=== PATIENT | male | born 1935 | race Caucasian/White ===

== ENCOUNTER 2020-05-10 09:34 | Outpatient (RCR) | payer MEDICARE, BC, SELFPAY | END 2020-05-10 23:59 | LOC: IMMUN 09:34 | PROVIDERS: PCP Student in an Organized Health Care Education/Training Program; Referring Provider Family Medicine; Visit Provider Family Medicine | DX: Z23 Encounter for immunization (principal) | CPT/HCPCS: 0011A; 0012A; 91301 ==

== ENCOUNTER 2020-08-14 14:21 | Observation (INO) | payer MEDICARE, BC, SELFPAY ==
[2020-08-14 13:51] VITALS: BP 119/71; PULSE 81; RESP 17; TEMP 36.4; O2SAT 95; BMI 20.2
--- NOTE | 2020-08-14 14:26 | PCM.HP.STD ---
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 He has been having abdominal pain that started about 2 months ago but at that time it resolved on its own and then he started having the abdominal pain a few weeks ago again it has not resolved so he went to his PCP who started him on a PPI however it has not improved and so he was scheduled to follow-up with his PCP this Wednesday for further testing and evaluation however the pain had gotten too great so he went to the ER. CT scan in the ER demonstrated peritoneal carcinomatosis with ascites. He does have a history of throat cancer back in 2001 and currently speaks through a [employer]. [facility] Medical History (Updated 08/14/20 @ 15:[address] 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 CHF (congestive heart failure) HLD (hyperlipidemia) HTN (hypertension) Hypothyroidism Stage 3a chronic kidney disease Home Medications aspirin 81 mg PO LUNCH 08/14/20 [History Last Taken 08/13/20] atorvastatin 40 mg PO QHS 08/14/20 [History Last Taken 08/13/20] cholecalciferol (vitamin D3) 125 mcg PO LUNCH 08/14/20 [History Last Taken 08/13/20] furosemide 40 mg PO LUNCH 08/14/20 [History Last Taken 08/13/20] levothyroxine 50 mcg PO DAILY 08/14/20 [History Last Taken 08/13/20] lisinopril 2.5 mg PO QHS 08/14/20 [History Last Taken 08/13/20] metoprolol succinate 25 mg PO QHS 08/14/20 [History Last Taken 08/13/20] multivitamin 1 tab PO LUNCH 08/14/20 [History Last Taken 08/13/20] nystatin 5 ml PO BID 08/14/20 [History Last Taken 08/13/20] omeprazole 20 mg PO DAILY 08/14/20 [History Last Taken 08/13/20] potassium chloride 10 meq PO LUNCH 08/14/20 [History Last Taken 08/13/20] Allergy/AdvReac Type Severity Reaction Status Date / Time tamsulosin AdvReac Severe Other Verified 08/14/20 15:25 Family History (Updated 08/14/20 @ 15:[address] José Garzon MD) Father Heart disease Mother Heart disease Brother Heart transplant recipient Surgical History (Updated 08/14/20 @ 15:[address] José Garzon MD) S/P angioplasty with stent Status post laryngectomy Status post tracheostomy Social History Smoking Status: Former smoker ROS Constitutional Constitutional: Reports change in weight; Denies chills, fatigue or fever(s) Eyes Eyes: Denies blurry vision ENT HEENT: Denies headache(s) Cardiovascular Cardiovascular: Denies chest pain or palpitations Respiratory/Chest Respiratory/Chest: Denies cough, shortness of breath at rest or shortness of breath with exertion Gastrointestinal Gastrointestinal: Reports abdominal pain; Denies diarrhea, nausea or vomiting Genitourinary Genitourinary: Denies dysuria or urinary frequency Musculoskeletal Musculoskeletal: Denies joint pain Neurologic Neurologic: Denies numbness, syncope or tingling Psychiatric Psychiatric: Denies anxiety or depression Vital Signs Vital Signs Vital Signs: 08/14/20 13:51 Temperature 97.6 F L Temperature Source Oral Pulse Rate 81 Respiratory Rate 17 Blood Pressure 119/71 Blood Pressure Mean 87 Blood Pressure Source Monitor Blood Pressure Position Semi-Fowlers Blood Pressure Location Right Arm Pulse Ox 95 Oxygen Delivery Method Room Air Physical Exam Const alert and oriented x3 General Appearance: cooperative HEENT HEENT Narrative: Hard of hearing, trach in place Eyes PERRL, EOMs intact bilaterally and conjunctivae normal Neck no lymphadenopathy, supple and no JVD Resp normal respiratory effort, no use of accessory muscles and clear to auscultation bilaterally Auscultation: Negative for crackles, rales, rhonchi or wheezes Cardio regular rate, regular rhythm, S1 normal heart sound, S2 normal heart sound and no murmurs GI soft to palpation, non-tender and non-distended Extremity no clubbing, cyanosis or edema Skin no rashes or lesions noted Neuro moves all extremities and no focal motor deficits Psych affect normal Assessment & Plan Assessment/Plan (1) Peritoneal carcinomatosis: (2) Ascites: QUALIFIERS: Ascites type: malignant Qualified Code(s): R18.0 - Malignant ascites PLAN: 1. Peritoneal carcinomatosis with radiologic ascites/history of throat cancer status post resection, radiation and permanent trach -We will attempt to upload CT scan from outside hospital if not we will have to repeat abdominal CT scan -We will consult oncology for evaluation -He has had about a 2 pound weight loss over the last 2 weeks, will encourage p.o. intake. We will place him on a regular diet 2. CAD status post stent/CHF unknown type/HLD/HTN -Blood pressure stable, resume home med -Continue with Lasix, and aspirin -Continue with Lipitor 3. Hypothyroidism -Stable -Continue with Synthroid 4. CKD 3a -Unsure if kidney function is at baseline with a creatinine of 1.48, will repeat in the morning DVT: Heparin Visit Charges Inpatient E&M: 65844 Init Hosp L2
--- NOTE | 2020-08-14 14:34 | PCM.HP.STD ---
HPI - General General Date of Admission: 08/14/20 HPI Narrative POP OWEN, is a 85 M who presents [facility] Allergy/AdvReac Type Severity Reaction Status Date / Time Tamsulosin AdvReac Severe Other Uncoded 08/14/20 14:04 Social History Smoking Status: Former smoker Vital Signs Vital Signs Vital Signs: 08/14/20 13:51 Temperature 97.6 F L Temperature Source Oral Pulse Rate 81 Respiratory Rate 17 Blood Pressure 119/71 Blood Pressure Mean 87 Blood Pressure Source Monitor Blood Pressure Position Semi-Fowlers Blood Pressure Location Right Arm Pulse Ox 95 Oxygen Delivery Method Room Air
--- NOTE | 2020-08-14 14:34 | PCM.DC ---
Discharge Instructions Dressing / Incision Call your doctor if you observe: Fever of 101 or Higher, Shortness of breath, Dizziness, Fainting spells, Swelling in the ankles, Chest pain and Increased palpitations (irregular heartbeat) Discharge Plan Admission Admit Date/Time: 08/14/20 14:21 Attending Provider: Leanne Saul Primary Care Provider: Ravi Patel Discharge Orders/Prescriptions Referrals: Ravi Patel DO [Primary Care Provider] - In 1 Week Roberto Gil MD [STAFF PHYSICIAN] - In 1 Week Disposition Disposition (needs filled in before D/C Order can be placed): Home, self care
[2020-08-14] MEDS: 0.9% Normal Saline 1,000 ML 75 ML IV (15:34)
[2020-08-14] MEDS: 0.9% Saline Lock 10 ML Syringe IV (15:35)
[2020-08-14 16:03] VITALS: PULSE 106
--- NOTE | 2020-08-14 18:36 | CON.PCM.ON_ITS ---
Assessment & Plan Assessment/Plan (1) Peritoneal carcinomatosis: Status: Acute Code(s): C78.6 - Secondary malignant neoplasm of retroperitoneum and peritoneum Plan: To obtain CT neck,chest, abdomen and pelvis to determine the extent of disease. Discussed case with Pt and his . (2) Ascites: Status: Acute Code(s): R18.8 - Other ascites Qualifiers: Ascites type: malignant Qualified Code(s): R18.0 - Malignant ascites Plan: To obtain diagnostic paracentesis for histologic diagnosis. (3) History of laryngeal cancer: Status: Acute Code(s): Z85.21 - Personal history of malignant neoplasm of larynx Plan: Will follow with further suggestion based on CT and Cytology results. HPI Consult Data Date of Service:: 08/14/20 PCP / Referring Provider: Dr. Ravi Patel DO Attending: Dr. Leanne Saul MD Chief Complaint Chief Complaint: Asked to Pt with Laryngeal cancer and ascites. 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 He was treated with radiation by Dr. Madison. In 2007 he had recurrence and total laryngectomy was done at [facility]. He presented to [facility] with abdominal pain, CT scan done over there reportedly shows peritoneal carcinomatosis with ascites. Has been transferred t [facility] [place] for further evaluation. Advanced Directives Power of [place]: Yes Living Will: Yes [facility] Medical History (Updated 08/14/20 @ 19:[address] Dariusz Sahu MD) CAD in [place] artery CHF (congestive heart failure) HLD (hyperlipidemia) HTN (hypertension) Hypothyroidism Stage 3a chronic kidney disease Home Medications aspirin 81 mg PO LUNCH 08/14/20 [History Last Taken 08/13/20] atorvastatin 40 mg PO QHS 08/14/20 [History Last Taken 08/13/20] cholecalciferol (vitamin D3) 125 mcg PO LUNCH 08/14/20 [History Last Taken 08/13/20] furosemide 40 mg PO LUNCH 08/14/20 [History Last Taken 08/13/20] levothyroxine 50 mcg PO DAILY 08/14/20 [History Last Taken 08/13/20] lisinopril 2.5 mg PO QHS 08/14/20 [History Last Taken 08/13/20] metoprolol succinate 25 mg PO QHS 08/14/20 [History Last Taken 08/13/20] multivitamin 1 tab PO LUNCH 08/14/20 [History Last Taken 08/13/20] nystatin 5 ml PO BID 08/14/20 [History Last Taken 08/13/20] omeprazole 20 mg PO DAILY 08/14/20 [History Last Taken 08/13/20] potassium chloride 10 meq PO LUNCH 08/14/20 [History Last Taken 08/13/20] Allergy/AdvReac Type Severity Reaction Status Date / Time tamsulosin AdvReac Severe Other Verified 08/14/20 15:25 Family History (Updated 08/14/20 @ 15:[address] José Garzon MD) Father Heart disease Mother Heart disease Brother Heart transplant recipient Surgical History (Updated 08/14/20 @ 15:[address] José Garzon MD) S/P angioplasty with stent Status post laryngectomy Status post tracheostomy Social History Smoking Status: Former smoker ROS Constitutional Constitutional: Denies fever(s) ENT HEENT: Reports other Details: Voice prosthesis ; Denies loss taste/smell Cardiovascular Cardiovascular: Denies chest pain Respiratory/Chest Respiratory/Chest: Denies dyspnea Gastrointestinal Gastrointestinal: Reports abdominal pain Musculoskeletal Musculoskeletal: Reports abnormal gait and other Details: using a walker Endocrine Endocrinology: Denies cold intolerance Hematologic/Lymphatic Hematologic/Lymphatic: Denies easy bleeding or easy bruising Physical Exam Const alert and oriented x3 Orientation / Consciousness: oriented to person HEENT normocephalic Head and Scalp: atraumatic Eyes PERRL and conjunctivae normal Neck no lymphadenopathy Neck Narrative: +prothesis anterior neck General: tracheostomy present Lymph Lymphatic: no lymphadenopathy noted Chest inspection of chest normal Resp normal respiratory effort Cardio regular rate, regular rhythm, S1 normal heart sound, S2 normal heart sound and no murmurs GI Palpation: tender Bladder / Kidney Exam: no CVA tenderness Extremity no clubbing, cyanosis or edema Neuro CN's II-XII intact bilaterally Psych mental status grossly normal Vital Signs: Vital Signs Temperature 97.6 F L 08/14/20 13:51 Temperature Source Oral 08/14/20 13:51 Pulse Rate 106 H 08/14/20 16:03 Respiratory Rate 17 08/14/20 13:51 Respiratory Effort Non-Labored 08/14/20 13:51 Respiratory Depth Normal 08/14/20 13:51 Respiratory Pattern Normal 08/14/20 13:51 Blood Pressure 119/71 08/14/20 13:51 Blood Pressure Mean 87 08/14/20 13:51 Blood Pressure Source Monitor 08/14/20 13:51 Blood Pressure Position Semi-Fowlers 08/14/20 13:51 Blood Pressure Location Right Arm 08/14/20 13:51 Pulse Ox 95 08/14/20 13:51 Oxygen Delivery Method Room Air 08/14/20 13:51 Charges/Coding Visit Charges Office Visits / Consults: 60621 IP Consult L4
[2020-08-14 19:00] VITALS: PULSE 97
[2020-08-14 19:33] LABS: Magnesium 2.1 mg/dL (1.6-2.6)
[2020-08-14 19:50] VITALS: BP 126/53; PULSE 94; RESP 18; TEMP 36.6; O2SAT 93
[2020-08-14 21:43] VITALS: BP 137/55; PULSE 104; RESP 18; TEMP 37.2; O2SAT 95
[2020-08-14 22:22] VITALS: PULSE 104
[2020-08-14] MEDS: Metoprolol(XL)Succ 25 MG Tablet PO (22:22)
[2020-08-14] MEDS: Lisinopril 2.5 MG Tablet PO (22:22)
[2020-08-14] MEDS: Atorvastatin Calcium 40 MG Tablet PO (22:22)
[2020-08-14] MEDS: NYSTATIN 500,000 UNIT/5 ML UDC 500000 UNIT PO (22:23)
[2020-08-14] MEDS: Heparin Injection (Vial) 5,000 UNIT/ML VIAL 5000 UNIT SC (22:23)
[2020-08-15] VITALS (7 sets, daily range): BP systolic 108–142; BP diastolic 42–76; PULSE 71–111; RESP 16–18; TEMP 36.6–36.8; O2SAT 94–97
[2020-08-15] MEDS: Acetaminophen 325 MG Tablet 650 MG PO (00:03)
[2020-08-15] MEDS: 0.9% Normal Saline 1,000 ML 75 ML IV (04:54)
[2020-08-15 05:06] LABS: Absolute Lymphocyte Count 0.57 X10^3/uL (0.83-4.51); Absolute Neutrophil Count 6.7 X10^3/uL (2.0-7.7); Basophil# 0.02 X10^3/uL; Basophil% 0.2 % (0-1); Differential Indicated SCAN CRITERIA MET; Eosinophils% 5.9 % (0-5); Hematocrit 30.9 % (40-54); Hemoglobin 9.6 g/dL (13.0-16.5); Lymphocyte # 0.57 X10^3/ul (0.83-4.51); Lymphocyte % 6.7 % (19-41); Mean Corp Hgb Conc 31.1 g/dL (32-36); Mean Corpuscular Hgb 28.8 pg (27.0-32.0); Mean Corpuscular Volume 92.8 fL (80-94); Mean Platelet Vol. 9.3 fl (6.2-12.0); Monocyte# 0.71 X10^3/uL; Monocyte% 8.3 % (0-10); NRBC Flagged by Analyzer 0 % (0-5); Neutrophil # 6.68 X10^3/uL (2.7-7.7); Neutrophil % 78.4 % (47-70); POSITIVE DIFFERENTIAL YES; Platelet Count 199 K/mm3 (150-450); RBC Distribution Width CV 14.5 % (11.6-14.6); RBC Distribution Width SD 49.3 fl (35.1-43.9); Red Blood Count 3.33 M/mm3 (4.6-6.2); White Blood Count 8.5 K/mm3 (4.4-11.0)
[2020-08-15 05:24] LABS: ALB/GLOB Ratio 0.7 RATIO (0.9-2.4); AST(SGOT) 17 U/L (15-37); Alanine Aminotransfer ALT/SGPT 28 U/L (16-61); Albumin, Serum 2.3 g/dL (3.2-5.0); Alkaline Phosphatase 116 U/L (45-117); Anion Gap 4 (5-15); BUN 28 mg/dL (7-18); BUN/Creat Ratio 23.5 RATIO (10-20); Calcium,Total 9.3 mg/dL (8.5-10.1); Chloride 109 mmol/L (98-107); Creatinine, Serum 1.19 mg/dL (0.70-1.30); EST Glomerular Filtration Rate 62 mL/min (>60); Est Glom Filt Rate - Afr Amer 75 mL/min (>60); Estimated Creatinine Clearance 45.56 ml/min; Globulin 3.2 g/dL (2.2-4.2); Glucose 104 mg/dL (74-106); Potassium 4.2 mmol/L (3.5-5.1); Protein, Total 5.5 g/dL (6.4-8.2); Sodium Level 140 mmol/L (136-145)
[2020-08-15] MEDS: Levothyroxine 50 MCG Tablet PO (05:55)
[2020-08-15] MEDS: Heparin Injection (Vial) 5,000 UNIT/ML VIAL 5000 UNIT SC (05:55)
[2020-08-15] MEDS: Pantoprazole Sodium 20 MG Tablet PO (08:47)
[2020-08-15] MEDS: NYSTATIN 500,000 UNIT/5 ML UDC 500000 UNIT PO (08:47)
--- NOTE | 2020-08-15 10:45 | CASEMGMT ---
RN MALCOLM Assessment: Face to Face with pt for initial transition planning/care coordination assessment. RN MALCOLM introduced self and role at [facility], pt voices understanding and consents to assessment. Pt is A/O x3 and answers all questions appropriately at this time. Pt able to speak through holding trach. Defers some questions to or corrects answers. Pt sitting up in chair with and dtr at bedside. Care providers, pharmacy, and demographics verified/updated. Admitting Dx: peritoneal cancer PCP: Jorge Specialists: [facility]; Prateek, cardio Preferred Pharmacy: [facility] [place] Insurance: [employer] Prescription Benefit: yes LW/HPOA: Pt gave CM LW and DPOA. CM copied and placed in pt chart. Pt DPOA is Brisa. LNOK: Brisa Eugene, dtr Antionette Mckeon Living Arrangements: Pt lives with in a single story house with 2 stairs with grab bar to enter. Pt reports being I in ADL's. Denies concerns at home. Transportation: Pt transports pt. Denies concerns with transportation. DME/HHC/SNF: Pt has a walker, cane, step in shower with 2 grab bars. Has had [facility] in the past and denies any SNF stays. Pt states no concerns with going home at time of dc. Pt states no further concerns/needs. CM to follow. Advised pt to ask CM if any further question/concerns/needs arise, voices understanding. Pt Goal: Home Plan: Home with family support.
[2020-08-15] MEDS: Aspirin 81 MG TAB.CHEW PO (11:21)
[2020-08-15] MEDS: Multivitamins,Therapeutic Tablet 1 TABLET PO (11:21)
[2020-08-15] MEDS: Furosemide 40 MG Tablet PO (11:21)
--- NOTE | 2020-08-15 11:41 | US_ITS ---
STUDY: ABDOMINAL ULTRASOUND - 4 quadrants. Ascites survey. REASON FOR VISIT: Male, 85 years old Malignant ascites -- NOT ENOUGH FLUID FOR DRAIN/SAMPLE TECHNIQUE: Ultrasound evaluation of the right upper quadrant was performed with real-time and static valdez-scale imaging. TECHNICAL QUALITY: Adequate. COMPARISON: None. FINDINGS: Ascites assessment. The 4 quadrants were examined. A small amount of fluid is seen in the right lower quadrant. US/Abdomen Limited IMPRESSION: Small amount of fluid is seen in the right lower quadrant. Not enough for safe paracentesis. Electronically Signed: Adam Bueno MD at 14:25 EDT , Service support ,
--- NOTE | 2020-08-15 11:44 | CT_ITS ---
STUDY: CT CHEST, ABDOMEN T PELVIS WITH CONTRAST REASON FOR EXAM: Male, 85 years old. Peritoneal carcinoma. Ascites. Patient has a history of remote laryngeal carcinoma with radiation and total laryngectomy. RADIATION DOSAGE (If Supplied By Facility): CTDIvol = ( 10.22 ) mGy, DLP = ( 865.65 ) mGycm TECHNIQUE: Transaxial imaging was performed following intravenous administration of IV 100ML ISOVUE 300. Individualized dose optimization techniques were used for this CT. COMPARISON: No relevant priors. FINDINGS: Postsurgical changes due to prior laryngectomy. A tracheostomy tube is seen. CHEST Hyperinflation. Emphysematous changes worse in the upper lobes with the multiple small bullous formation and increased linear markings in keeping with scarring. There is also evidence of increased markings at the lung bases suggestive scarring. Minimal pleural thickening at the left lung base. There is no demonstrated pleural abnormality. There are calcifications of the coronary arteries. Normal mediastinum. Normal hilar regions. Normal unenhanced pulmonary arteries. There is atherosclerotic calcification of the aortic arch with tortuosity and elongation of the aortic arch and descending thoracic aorta. Normal osseous structures. Very hepatic and perisplenic fluid. Increased markings are seen in the peritoneal fat in the left upper quadrant suggestive of peritoneal metastasis. ABDOMEN Small left pleural effusion with increased markings at the lung bases suggestive scarring. Coronary artery calcification. Small amount of perihepatic fluid. Normal gallbladder and extrahepatic biliary system. Normal spleen. Normal pancreas. Diffuse increased markings without focal areas of rounded nodular densities within the peritoneal fat more prominent in the left upper quadrant in keeping with the patient''s history of peritoneal metastasis. Normal bilateral adrenal glands. There is a 1.6 m cyst in the posterior aspect of the right kidney. Normal left kidney. Normal visualized stomach. Normal small intestine. Normal colon. The appendix is visualized and appears normal. There is diffuse atherosclerotic calcification of the abdominal aorta and the major visceral branches. Ectasia of the infrarenal abdominal aorta with a transverse dimension of 2.9 cm.Normal inferior vena cava. Normal retroperitoneum. Small bilateral inguinal hernias containing fat. Disc space narrowing and degeneration at the L5-S1 level. PELVIS Distended urinary bladder. A small amount of fluid is seen in the pelvis. Small amount of fluid in the paracolic gutters. The prostate is enlarged. This causes indentation at the bladder base. Prostatic calcifications. The prostate measures 5.1 cm x 6.1 cm. Normal visualized small intestine. Normal visualized colon. There is no pelvic fluid. There is no pelvic lymphadenopathy or mass lesion. Normal visualized pelvic arteries. Small bilateral inguinal hernias containing fat and fluid. CT/CT Chest, Abd, Pel w/Contrast IMPRESSION: Small amount of ascites. 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 Electronically Signed: Adam Bueno MD at 13:39 EDT , Service support ,
--- NOTE | 2020-08-15 11:50 | CT_ITS ---
STUDY: CT SOFT TISSUE NECK WITH CONTRAST REASON FOR EXAM: Male, 85 years old. Malignancy stag. History of laryngeal carcinoma with laryngectomy and radiation therapy. RADIATION DOSAGE (If Supplied By Facility): CTDIvol = ( 10.22 ) mGy, DLP = ( 865.65 ) mGycm TECHNIQUE: The patient was scanned in a multi-detector CT scanner. High resolution transaxial imaging was performed following intravenous administration of IV 100ML ISOVUE 300. Sagittal and coronal images were reconstructed. Individualized dose optimization techniques were used for this CT. COMPARISON: None. FINDINGS: Atherosclerotic calcification of the aortic arch. Atherosclerotic plaque formation of the carotid bifurcations bilaterally with bilateral high-grade stenoses. The patient is status post laryngectomy and postoperative changes. A tracheostomy tube is seen. The patient is status post right radical neck dissection. Normal bilateral sublingual and submandibular glands and spaces. Normal visualized nasopharynx. Normal retropharyngeal space. Normal perivertebral space. Normal visualized bilateral faucial tonsils. The visualized tongue, tongue base and oropharynx are normal. The visualized cervical lymph nodes (levels I-) are within normal size limits, and maintain normal morphology. There is no demonstrated solid or cystic mass lesion. There is no abnormal contrast enhancement. Normal bilateral lobes of the thyroid gland. Normal visualized pulmonary apices. Normal visualized paranasal sinuses. There is multilevel degenerative changes of the cervical spine. CT/Soft Tissue Neck WITH Contrast IMPRESSION: The patient is status post right radical neck dissection with laryngectomy. A tracheostomy tube is in situ. Electronically Signed: Adam Bueno MD at 14:06 EDT , Service support ,
--- NOTE | 2020-08-15 14:27 | CASEMGMT ---
Faxed Palliative Care referral to [facility] per request of for pt as an outpt. TC to Palliative and left message regarding referral.
--- NOTE | 2020-08-15 14:45 | PCM.DC ---
Discharge Instructions Diet Discharge Diet: No restrictions Activity Discharge Activity: Return to Normal Activity Follow Up Care Test Results: Test results from this visit will be discussed in further detail at your follow-up appointment, if applicable. Discharge Plan Admission Admit Date/Time: 08/14/20 14:21 Attending Provider: Terri Huerta Primary Care Provider: Ravi Patel Consulting Providers: Dariusz Sahu Instructions Patient Instructions: Paracentesis Discharge Orders/Prescriptions Prescriptions: Continued multivitamin Tablet 1 tab PO LUNCH RF: 0 furosemide 40 mg Tablet 40 mg PO LUNCH RF: 0 atorvastatin 40 mg Tablet 40 mg PO QHS RF: 0 nystatin 100,000 unit/mL Suspension 5 ml PO BID RF: 0 potassium chloride 10 mEq Tablet Extended Release 10 meq PO LUNCH RF: 0 omeprazole 20 mg Capsule,Delayed Release(Dr/Ec) 20 mg PO DAILY RF: 0 aspirin 81 mg Tablet 81 mg PO LUNCH RF: 0 metoprolol succinate 25 mg Tablet Extended Release 24 Hr 25 mg PO QHS RF: 0 lisinopril 2.5 mg Tablet 2.5 mg PO QHS RF: 0 cholecalciferol (vitamin D3) 125 mcg (5,000 unit) Capsule 125 mcg PO LUNCH RF: 0 levothyroxine 50 mcg Capsule 50 mcg PO DAILY RF: 0 Referrals / Follow Up: Dariusz Sahu MD [NON-STAFF] - In 1 Week Ravi Patel DO [Primary Care Provider] - In 1 Week Disposition Disposition (needs filled in before D/C Order can be placed): Home, self care
--- NOTE | 2020-08-15 14:48 | PCM.DC.SUM ---
Providers Date of Admission: 08/14/20 Primary Care Physician: Dr. 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.6 - Secondary malignant neoplasm of retroperitoneum and peritoneum (2) Ascites: Status: Acute Code(s): R18.8 - Other ascites Qualifiers: Ascites type: malignant Qualified Code(s): R18.0 - Malignant ascites (3) History of laryngeal cancer: Status: Acute Code(s): Z85.21 - Personal history of malignant neoplasm of larynx Medications at Discharge Home Medications aspirin 81 mg PO LUNCH 08/14/20 atorvastatin 40 mg PO QHS 08/14/20 cholecalciferol (vitamin D3) 125 mcg PO LUNCH 08/14/20 furosemide 40 mg PO LUNCH 08/14/20 levothyroxine 50 mcg PO DAILY 08/14/20 lisinopril 2.5 mg PO QHS 08/14/20 metoprolol succinate 25 mg PO QHS 08/14/20 multivitamin 1 tab PO LUNCH 08/14/20 nystatin 5 ml PO BID 08/14/20 omeprazole 20 mg PO DAILY 08/14/20 potassium chloride 10 meq PO LUNCH 08/14/20 Hospital Course Operations None Procedures Paracentesis Summary of Care Provided Minutes Spent on Discharge: 35 Hospital Course: Patient is an 85-year-old male admitted 08/14/2020 due to abdominal pain. 1. Peritoneal carcinomatosis- oncology consulted. Patient underwent CT of neck, chest, abdomen and pelvis for staging. Diagnostic paracentesis completed for malignant ascites. Results are pending at discharge. Patient will follow up with oncology, Dr. Sahu in 1 week for results and further management. Patient and family amenable to palliative/hospice consult at discharge, referral placed. 2. CAD with history of stents-continue aspirin, statin, metoprolol, lisinopril. 3. Chronic CHF, unknown subtype-stable, continue Lasix regimen. 4. Hypertension-stable, continue lisinopril, Toprol. 5. Hyperlipidemia-continue statin. 6. Hypothyroidism-continue Synthroid. 7. CKD stage IIIa-stable. Patient seen and examined prior to discharge. Physical assessment as noted below. Patient is stable for discharge with follow up recommendations as noted above. This patient was seen by LONDON Younger under the supervision of Dr. Huerta. Physical Exam Const alert, oriented x3 and no apparent distress Orientation / Consciousness: awake, oriented to person, oriented to place and oriented to time HEENT normocephalic and moist oral mucous membranes Eyes PERRL, EOMs intact bilaterally and conjunctivae normal Neck no lymphadenopathy Resp normal respiratory effort and clear to auscultation bilaterally Cardio regular rate, regular rhythm and no murmurs Peripheral Pulses: pulses 2+ throughout GI normal to inspection, nondistended, normoactive bowel sounds, non-tender and non-distended Extremity normal to inspection Skin no rashes or lesions noted Lesions: no lesions Rashes: no rashes Trauma: no lacerations or abrasions Neuro oriented x3 Sensorium / Orientation: awake and alert Psych affect normal ABG / Lab / Microbiology Data Result Diagrams: 08/15/20 04:52 08/15/20 04:52 Laboratory: Laboratory Results - last 24 hr 08/14/20 08/15/20 08/15/20 18:43 04:52 04:52 WBC 8.5 RBC 3.33 L Hgb 9.6 L Hct 30.9 L MCV 92.8 MCH 28.8 MCHC 31.1 L RDW Std Deviation 49.3 H RDW Coeff of Kathy 14.5 Plt Count 199 MPV 9.3 Immature Gran % (Auto) 0.500 Neut % (Auto) 78.4 H Lymph % (Auto) 6.7 L Burnett % (Auto) 8.3 Eos % (Auto) 5.9 H Baso % (Auto) 0.2 Absolute Neuts (auto) 6.7 Absolute Lymphs (auto) 0.57 L Nucleated RBC % 0 Sodium 140 Potassium 4.2 Chloride 109 H Carbon Dioxide 27.0 Anion Gap 4 L BUN 28 H Creatinine 1.19 Estim Creat Clear Calc 45.56 Est GFR (MDRD) Af Amer 75 Est GFR (MDRD) Non-Af 62 BUN/Creatinine Ratio 23.5 H Glucose 104 Calcium 9.3 Magnesium 2.1 Total Bilirubin 0.30 AST 17 ALT 28 Alkaline Phosphatase 116 Total Protein 5.5 L Albumin 2.3 L Globulin 3.2 Albumin/Globulin Ratio 0.7 L 08/15/20 04:52 WBC RBC Hgb Hct MCV MCH MCHC RDW Std Deviation RDW Coeff of Kathy Plt Count MPV Immature Gran % (Auto) Neut % (Auto) Lymph % (Auto) Burnett % (Auto) Eos % (Auto) Baso % (Auto) Absolute Neuts (auto) Absolute Lymphs (auto) Nucleated RBC % Sodium Potassium Chloride Carbon Dioxide Anion Gap BUN Creatinine Estim Creat Clear Calc Est GFR (MDRD) Af Amer Est GFR (MDRD) Non-Af BUN/Creatinine Ratio Glucose Calcium Magnesium Total Bilirubin AST ALT Alkaline Phosphatase Total Protein Albumin Cancelled Globulin Albumin/Globulin Ratio Radiography Diagnostic Testing: Radiology Impression Abdomen Ultrasound 08/15/20 11:41 IMPRESSION: Small amount of fluid is seen in the right lower quadrant. Not enough for safe paracentesis. Electronically Signed: Adam Bueno MD at 14:25 EDT , Service support , Chest/Abdomen/Pelvis CT 08/15/20 11:44 IMPRESSION: Small amount of ascites. 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 Electronically Signed: Adam Bueno MD at 13:39 EDT , Service support , Soft Tissue Neck CT 08/15/20 11:50 IMPRESSION: The patient is status post right radical neck dissection with laryngectomy. A tracheostomy tube is in situ. Electronically Signed: Adam Bueno MD at 14:06 EDT , Service support , D/C Instructions Discharge Diet: No restrictions Discharge Activity: Return to Normal Activity Meaningful Use Info Meaningful Use Diagnoses (Choose all that apply): None applicable Discharge Plan Admission Admit Date/Time: 08/14/20 14:21 Attending Provider: Terri Huerta Primary Care Provider: Ravi Patel Consulting Providers: Dariusz Sahu Instructions Patient Instructions: Paracentesis Discharge Orders/Prescriptions Prescriptions: Continued multivitamin Tablet 1 tab PO LUNCH RF: 0 furosemide 40 mg Tablet 40 mg PO LUNCH RF: 0 atorvastatin 40 mg Tablet 40 mg PO QHS RF: 0 nystatin 100,000 unit/mL Suspension 5 ml PO BID RF: 0 potassium chloride 10 mEq Tablet Extended Release 10 meq PO LUNCH RF: 0 omeprazole 20 mg Capsule,Delayed Release(Dr/Ec) 20 mg PO DAILY RF: 0 aspirin 81 mg Tablet 81 mg PO LUNCH RF: 0 metoprolol succinate 25 mg Tablet Extended Release 24 Hr 25 mg PO QHS RF: 0 lisinopril 2.5 mg Tablet 2.5 mg PO QHS RF: 0 cholecalciferol (vitamin D3) 125 mcg (5,000 unit) Capsule 125 mcg PO LUNCH RF: 0 levothyroxine 50 mcg Capsule 50 mcg PO DAILY RF: 0 Referrals / Follow Up: Dariusz Sahu MD [NON-STAFF] - In 1 Week Ravi Patel DO [Primary Care Provider] - In 1 Week Disposition Disposition (needs filled in before D/C Order can be placed): Home, self care
== END 2020-08-15 16:42 | disposition home or self-care (01) ==
PROVIDERS: Family Medicine; Admitting Provider Student in an Organized Health Care Education/Training Program; PCP Student in an Organized Health Care Education/Training Program; Visit Provider Family Medicine
DX: C78.6 Secondary malignant neoplasm of retroperitoneum and peritoneum (principal); R18.0 Malignant ascites; I25.10 Atherosclerotic heart disease of native coronary artery without angina pectoris; I13.0 Hypertensive heart and chronic kidney disease with heart failure and stage 1 through stage 4 chronic kidney disease, or unspecified chronic kidney disease; N18.31 Chronic kidney disease, stage 3a; I50.9 Heart failure, unspecified; E03.9 Hypothyroidism, unspecified; E78.5 Hyperlipidemia, unspecified; K21.9 Gastro-esophageal reflux disease without esophagitis; E43 Unspecified severe protein-calorie malnutrition; Z79.899 Other long term (current) drug therapy; Z79.82 Long term (current) use of aspirin; Z85.21 Personal history of malignant neoplasm of larynx; Z87.891 Personal history of nicotine dependence; Z92.3 Personal history of irradiation; Z95.5 Presence of coronary angioplasty implant and graft; Z68.20 Body mass index [BMI] 20.0-20.9, adult
CPT/HCPCS: 36415; 70491; 71260; 74177; 76705; 80053; 83735; 85025; 96360; 96361; 96372; 97802; 99218; J7030; Q9967; A4216; G0378; G0379